=== PATIENT | male | born 1945 | race Caucasian/White ===

== ENCOUNTER 2017-05-07 09:00 | Day surgery (SDC) | payer OTHER ==
[~2017-05-07] VITALS: Ht 167.6 cm; Wt 65.9 kg
[2017-05-07 09:24] VITALS: BP 149/75
[2017-05-07] MEDS ORDERED: CARV-39 PO (09:37)
[2017-05-07] MEDS ORDERED: VITAMIN B12 PO (09:37)
[2017-05-07] MEDS ORDERED: MAGNESIUM (09:37)
[2017-05-07] MEDS ORDERED: CHLO25TA PO (09:37)
[2017-05-07] MEDS ORDERED: AMLO5TAB2 PO (09:37)
[2017-05-07] MEDS ORDERED: LOSA100T6 PO (09:37)
[2017-05-07] MEDS ORDERED: SIMV10TA3 PO (09:37)
[2017-05-07] MEDS ORDERED: ASPI-515 PO (09:37)
[2017-05-07] MEDS ORDERED: CLOP75TA52 PO (09:37)
[2017-05-07] MEDS ORDERED: METF-688 PO (09:37)
[2017-05-07] MEDS ORDERED: LINA5TAB PO (09:37)
[2017-05-07] MEDS ORDERED: CHOL200074 PO (09:37)
[2017-05-07] MEDS ORDERED: POTASSIUM (09:37)
[2017-05-07 10:31] LABS: HEMATOCRIT 43.8 % (39.2-51.8); HEMOGLOBIN 14.4 g/dL (13.7-18.0)
[2017-05-07 10:40] LABS: ASPARTATE AMINO TRANSFERASE 14 U/L (15-37); BLOOD UREA NITROGEN 15 mg/dL (7-18)
[2017-05-07] MEDS ORDERED: PROPOFOL 10 MG/ML, 20ML ONE ×2 (11:21)
[2017-05-07] MEDS ORDERED: MIDAZOLAM 1 MG/ML, 2ML ONE (11:26)
[2017-05-07] MEDS ORDERED: FENTANYL PF 100 MCG/2ML ONE (11:26)
[2017-05-07] MEDS ORDERED: METOPROLOL 1 MG/ML, 5ML IV PRN (12:30)
[2017-05-07] MEDS ORDERED: HYDROmorphone 1 MG/ML, 1ML IV PRN (12:30)
[2017-05-07] MEDS ORDERED: EPHEDRINE 50 MG/ML, 1ML IVPush PRN (12:30)
[2017-05-07] MEDS ORDERED: METOCLOPRAMIDE 5 MG/ML, 2ML IV PRN (12:30)
[2017-05-07] MEDS ORDERED: ACETAMINOPHEN 325 MG TABLET PO PRN (12:30)
[2017-05-07] MEDS ORDERED: PROMETHAZINE 25 MG/ML, 1ML IV PRN (12:30)
[2017-05-07] MEDS ORDERED: ALBUTEROL SULFATE 2.5 MG/3 ML NPPB PRN (12:30)
[2017-05-07] MEDS ORDERED: ONDANSETRON 2MG/ML, 2ML IVPush PRN (12:30)
[2017-05-07] MEDS ORDERED: hydrALAzine 20 MG/ML, 1ML IV PRN (12:30)
[2017-05-07] MEDS ORDERED: HYDROcodone/APAP 7.5-325MG/15ML UDC PO PRN (12:30)
[2017-05-07] MEDS ORDERED: FENTANYL PF 100 MCG/2ML IV PRN (12:30)
[2017-05-07] MEDS ORDERED: LABETALOL 5MG/ML, 20ML IV PRN (12:30)
[2017-05-07] MEDS ORDERED: EPINEPHRINE SYRINGE 0.1 MG/ML, 10ML ONE (15:16)
== END 2017-05-07 13:25 ==
LOC: OUT 09:00
PROVIDERS: ATTEND Internal Medicine
DX: K31.7 Polyp of stomach and duodenum (principal); E11.9 Type 2 diabetes mellitus without complications; I10 Essential (primary) hypertension; Z86.73 Personal history of transient ischemic attack (TIA), and cerebral infarction without residual deficits; Z98.890 Other specified postprocedural states; Z72.89 Other problems related to lifestyle
CPT/HCPCS: 36415; 43237; 43251; 80053; 82962; 85025; 85610; 88305; 93005; J2250; J2704; J3010

== ENCOUNTER 2018-06-24 12:13 | Outpatient (CLI) | payer OTHER ==
[~2018-06-24 12:13] MED LIST: AMLO-150 PO; ASPI-515 PO; CARV-39 PO; CHLO25TA PO; CHOL200074 PO; CLOP75TA52 PO; LINA5TAB PO; LOSA100T7 PO; MAGNESIUM; METF-688 PO; POTASSIUM; SIMV10TA3 PO; VITAMIN B12 PO
== END 2018-06-24 23:59 | disposition home or self-care (01) ==
LOC: PETCFH 12:13
PROVIDERS: ATTEND Family Medicine
DX: C16.2 Malignant neoplasm of body of stomach (principal)
CPT/HCPCS: 78815; A9552